=== PATIENT | male | born 1960 | race Caucasian/White ===

== ENCOUNTER 2016-09-30 00:45 | Emergency (ER) | payer OTHER ==
[~2016-09-30] VITALS: Ht 182.9 cm; Wt 95.6 kg
[2016-09-30 01:26] LABS: HEMATOCRIT 46.3 % (38.0-50.0); MCHC 34.1 G/DL (30.0-36.0); MCV 87.9 FL (86-99); MEAN PLAT.VOLUME 9.4 uM^3 (9.0-12.4); PLATELET COUNT 179 K/uL (156-360); RBC DIS.WIDTH-CV 12.9 % (11.8-14.6); RBC DIS.WIDTH-SD 41.3 % (39-53); RED BLOOD COUNT 5.27 M/uL (4.00-5.50); WHITE BLOOD COUNT 5.8 K/uL (4.1-10.2)
[2016-09-30 01:34] LABS: CHLORIDE 108 mEq/L (99-109)
[2016-09-30 01:35] LABS: POTASSIUM 3.7 mEq/L (3.7-5.4); SODIUM 142 mEq/L (136-147)
[2016-09-30 01:36] LABS: GLUCOSE 106 mg/dL (70-99)
[2016-09-30 01:38] LABS: ANION GAP 8 MEQ/L (2-14)
[2016-09-30 01:40] LABS: GFR ESTIMATE (CALCULATED) > 59 mL/min/
[2016-09-30 01:41] LABS: UREA NITROGEN (BUN) 23 mg/dL (9-23)
[2016-09-30 01:42] LABS: TROP-I INTERPRETATION NEGATIVE; TROPONIN-I 0.03 ng/mL (0.0-0.30)
[2016-09-30 03:06] LABS: TROP-I INTERPRETATION NEGATIVE; TROPONIN-I 0.03 ng/mL (0.0-0.30)
[2016-09-30 03:31] VITALS: BP 150/93
== END 2016-09-30 03:31 | disposition home or self-care (01) ==
LOC: EME 00:45
PROVIDERS: Emergency Medicine
DX: R07.9 Chest pain, unspecified (principal); I10 Essential (primary) hypertension; R42 Dizziness and giddiness
CPT/HCPCS: 71020; 80048; 83880; 84484; 85027; 93005; 99281; 99284